=== PATIENT | female | born 1950 | race Caucasian/White ===

== ENCOUNTER 2017-07-07 10:58 | Outpatient (CLI) | payer MEDICARE | END 2017-07-07 19:30 | disposition other institution (70) | LOC: D.OPS 10:58 | DX: D64.9 Anemia, unspecified (principal) ==

== ENCOUNTER 2017-07-10 16:30 | Outpatient (CLI) | payer MEDICARE ==
[~2017-07-10] VITALS: Ht 167.6 cm; Wt 88.6 kg
[2017-07-10 18:17] VITALS: BP 136/76; Ht 167.6 cm; Wt 88.6 kg
== END 2017-07-11 01:30 ==
LOC: D.OPS 16:30 → D.MS 20:22 → D.OPS 07-11 01:30
DX: D64.9 Anemia, unspecified (principal)

== ENCOUNTER 2017-10-02 12:01 | Outpatient (CLI) | payer MEDICARE ==
[~2017-10-02] VITALS: Ht 167.6 cm; Wt 88.2 kg
[2017-10-02 14:07] VITALS: BP 127/52; Ht 167.6 cm; Wt 88.2 kg
== END 2017-10-02 19:06 | disposition home or self-care (01) ==
LOC: D.OPS 12:01
DX: D64.9 Anemia, unspecified (principal)